=== PATIENT | male | born 1995 | race Caucasian/White ===

== ENCOUNTER → 2021-10-12 02:32 | Outpatient (CLI) | payer OTHER, SELFPAY ==
[2021-10-12 18:47] LABS: SARS-CoV-2 RNA PCR Negative
== END ==
PROVIDERS: PCP Nurse Practitioner Adult Health; Visit Provider Nurse Practitioner Adult Health
DX: R68.83 Chills (without fever) (principal); Z20.822 Contact with and (suspected) exposure to COVID-19
CPT/HCPCS: C9803; U0003; U0005

== ENCOUNTER 2023-08-14 15:45 | Emergency (ER) | payer OTHER, SELFPAY ==
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
[2023-08-14 16:40] VITALS: BP 114/69; PULSE 66; RESP 16; TEMP 36.7; O2SAT 100
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
[2023-08-14] MEDS: CYCLOBENZAPRINE HCL 10 MG TABLET PO (18:47)
[2023-08-14] MEDS: HYDROcodone/acetaminophen (*CRX) 5-325 MG TABLET 1 TAB PO (18:47)
[2023-08-14] MEDS: KETOROLAC 30 MG/ML VIAL (*BKC) IM (18:50)
== END 2023-08-14 19:02 | disposition home or self-care (01) ==
PROVIDERS: Emergency Provider Nurse Practitioner Family; PCP Family Medicine
DX: R51.9 Headache, unspecified (principal); M54.2 Cervicalgia; V43.52XA Car driver injured in collision with other type car in traffic accident, initial encounter; Y92.481 Parking lot as the place of occurrence of the external cause
CPT/HCPCS: 70450; 72125; 96372; 99284; A9270; J1885

== ENCOUNTER 2025-03-03 16:28 | Outpatient (CLI) | payer OTHER, SELFPAY ==
--- OUTSIDE RECORDS SUMMARY | 2025-03-03 17:08 | XMS_ITS | Data Portability ---
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 Annual labs: 04/17/23. D/w pt in detail about his findings, recent labs and further plan of care. All meds verified with pt. Meds as directed. Diet and exercise explained in detail. Advised pt to talk with close friend/family member on a regular basis. Educated about alarming symptoms to monitor at home and call us back Or get checked in ED. Pt verbalized understanding it. Pt has done PT in the past. Offered to refer to counsellor; but pt declined. Offered to refer to Ortho; but pt declined. HM: Flu - Pt declined. Tdap, Gardasil - At pharmacy/HD. F/u in 2-3 months. Annual labs in 04/18. [email or web address] Not available 02/06/2024 17:56:27 04/17/2024 04/17/2024 28 yo M with - WELL ADULT VISIT - ANEMIA - DYSTHYMIA - ANXIETY - RT SHOULDER PAIN, chronic - FATIGUE - EX-SMOKER X-ray Rt shoulder: 08/23/23. Annual labs: 04/17/23. D/w pt in detail about his findings, recent labs and further plan of care. Will do routine labs, cxr. Will refer pt to Ortho. All meds verified with pt. Meds as directed. Diet and exercise explained in detail. Advised pt to talk with close friend/family member on a regular basis. Educated about alarming symptoms to monitor at home and call us back Or get checked in ED. Pt verbalized understanding it. F/u with Ortho as per schedule. Pt has done PT in the past. Offered to refer to counsellor; but pt declined. HM: Flu - Pt declined. Tdap, Gardasil - At pharmacy/HD. F/u in 3 weeks. Annual labs in 04/19. Not available 04/17/2024 11:08:44 05/14/2024 05/14/2024 28 yo M with - ANEMIA, improved - DYSTHYMIA - ANXIETY - RT SHOULDER PAIN, chronic - FATIGUE - EX-SMOKER Annual labs: 04/17/24. X-ray Rt shoulder: 08/23/23. Annual labs: 04/17/23. D/w pt in detail about his findings, recent labs and further plan of care. All meds verified with pt. Meds as directed. Diet and exercise explained in detail. Advised pt to talk with close friend/family member on a regular basis. Educated about alarming symptoms to monitor at home and call us back Or get checked in ED. Pt verbalized understanding it. F/u with Ortho as per schedule. Pt has done PT in the past. Offered to refer to counsellor; but pt declined. HM: Flu - Pt declined. Tdap, Gardasil - At pharmacy/HD. F/u in 3-4 months. CBC in 11/18. Annual labs in 04/19. [email or web address] Not available 05/14/2024 15:56:47 12/04/2024 12/04/2024 29 yo M with - B/L SHOULDER PAIN, chronic - ANEMIA, improved - DYSTHYMIA - ANXIETY - FATIGUE - EX-SMOKER Annual labs: 04/17/24. X-ray Rt shoulder: 08/23/23. Annual labs: 04/17/23. D/w pt in detail about his findings, recent labs & imagines and further plan of care. Will do x-ray. All meds verified with pt. Meds as directed. Diet and exercise explained in detail. Advised pt to talk with close friend/family member on a regular basis. Educated about alarming symptoms to monitor at home and call us back Or get checked in ED. Pt verbalized understanding it. F/u with Ortho as per schedule. Pt has done PT in the past. Offered to refer to counsellor; but pt declined. HM: Flu - Pt declined. Tdap, Gardasil - At pharmacy/HD. F/u in 3 weeks. CBC before next visit. Annual labs in 04/19. [email or web address] Not available 12/04/2024 15:26:49 12/29/2024 12/29/2024 29 yo M with - B/L SHOULDER PAIN, chronic - ANEMIA, improved - DYSTHYMIA - ANXIETY - FATIGUE - EX-SMOKER Annual labs: 04/17/24. X-ray Rt shoulder: 08/23/23. Annual labs: 04/17/23. D/w pt in detail about his findings, recent labs & imagines and further plan of care. Will refer pt to Ortho again. All meds verified with pt. Meds as directed. Diet and exercise explained in detail. Advised pt to talk with close friend/family member on a regular basis. Educated about alarming symptoms to monitor at home and call us back Or get checked in ED. Pt verbalized understanding it. F/u with Ortho as per schedule. Pt has done PT in the past. Offered to refer to counsellor; but pt declined. HM: Flu - Pt declined. Tdap, Gardasil - At pharmacy/HD. F/u in 1-2 months. CBC, x-ray before next visit. Annual labs in 04/19. [email or web address] Not available 12/29/2024 17:08:16 Plan of Treatment Reminders Order Date Submit Date Provider Last Modified By Organization Details Last Modified Time Details Appointments Follow Up 15 2024 03:45P Fly Avila MD Not available Not available Not available Lab CBC w/ auto diff 2024 025 [facility] (Lab), [address] [place], [address], 12/25/2024 14:27:38 CBC w/ auto diff 2023 024 [email or web address] [facility] (Lab), [address] [place], [address], 11/04/2024 08:36:18 vitamin B12 + folate, serum or blood [address] (Lab), [address] [place], [address], 04/24/2024 08:00:28 iron + total iron-bind ing capacity (TIBC), serum [address] [facility] (Lab), [address] [place], [address], 04/17/2024 22:44:24 ferritin, serum or plasma [address] [facility] (Lab), [address] [place], [address], 04/17/2024 23:06:31 CMP, serum or plasma [address] [facility] (Lab), [address] [place], [address], 04/17/2024 22:44:35 CBC w/ auto diff [address] [facility] (Lab), [address] [place], [address], 04/17/2024 22:16:56 lipid panel, blood [address] (Lab), [address] [place], [address], 04/24/2024 08:00:28 TSH, serum, reflex free T4 [address] (Lab), [address] [place], [address], 04/24/2024 08:00:28 urinalysi s complete, reflex culture [address] (Lab), [address] [place], [address], 04/24/2024 08:00:28 magnesium , serum or plasma [address] [facility] (Lab), [address] [place], [address], 04/17/2024 22:44:40 vitamin D, 25-hydrox y, total, serum 2023 024 [email or web address] [facility] (Lab), [address] [place], [address], 04/24/2024 08:00:28 uric acid, serum or plasma [address] [facility] (Lab), [address] [place], [address], 04/17/2024 22:44:44 Referral orthopedi c surgeon referral - B/l shoulder pain, x-rays done. Please call patient to schedule an appointme nt. Thank you. 2024 025 [email or web address] [facility], [address], [place], [address], 01/26/2025 08:57:23 orthopedi c surgeon referral - Please call patient to schedule an appointme nt. Thank you. 2023 024 [email or web address] [facility], [address], [place], [address], 05/15/2024 09:19:30 Procedures None recorded. Surgeries None recorded. Imaging XR, shoulder, 2 or more view [address] ([facility]), [address] [place], [address], 12/11/2024 08:50:03 XR, chest, 2 view [address] ([facility]), [address] [facility] [place], [address], 05/02/2024 09:18:52 Medication Orders sertralin e 50 mg tablet 2024 025 [facility] #46828, [address], [place], [place], [id number], 12/29/2024 17:03:52 buspirone 10 mg tablet 2024 025 [facility] #32859, [address], [place], [place], [id number], 12/29/2024 17:03:43 ferrous sulfate 325 mg (65 mg iron) tablet 2024 025 [facility] #56160, [address], [place], [place], [id number], 12/29/2024 17:03:39 diclofena c sodium 75 mg tablet,de layed release 2024 025 [facility] #06187, [address], [place], [place], [id number], 12/29/2024 17:03:42 sertralin e 50 mg tablet 2024 025 [facility] #67028, [address], [place], [place], [id number], 12/04/2024 15:21:17 buspirone 10 mg tablet 2024 025 [facility] #90447, [address], [place], [place], [id number], 12/04/2024 15:21:17 ferrous sulfate 325 mg (65 mg iron) tablet 2024 025 [facility] #49477, [address], [place], [place], [id number], 12/04/2024 15:21:16 diclofena c sodium 75 mg tablet,de layed release [email or web address] [place] [address] [facility] #67695, [address], [place], [place], [id number], 12/04/2024 15:21:27 sertralin e 100 mg tablet [email or web address] [facility] #13152, [address], [place], [place], [id number], 12/29/2024 17:09:02 buspirone 10 mg tablet 2023 024 [facility] #36356, [address], [place], [id number], 05/14/2024 15:51:13 ferrous sulfate 325 mg (65 mg iron) tablet 2023 024 [email or web address] [facility] #80122, [address], [place], [place], [id number], 05/14/2024 15:51:25 diclofena c sodium 75 mg tablet,de layed release 2023 024 [facility] #61126, [address], [place], [place], [id number], 05/14/2024 15:50:54 buspirone 10 mg tablet 2023 024 [facility] #95247, [address], [place], [place], [id number], 04/17/2024 11:00:54 ferrous sulfate 325 mg (65 mg iron) tablet [address] [facility] #81826, [address], [place], [place], [id number], 04/17/2024 11:00:59 sertralin e 100 mg tablet [address] [facility] #23706, [address], [place], [place], [id number], 12/29/2024 17:09:02 diclofena c sodium 75 mg tablet,de layed release 2023 024 [facility] #55104, [address], [place], [place], [id number], 04/17/2024 11:00:53 sertralin e 100 mg tablet [address] [facility] #78303, [address], [place], [place], [id number], 12/29/2024 17:09:02 buspirone 10 mg tablet 2023 024 [facility] #73930, [address], [place], [place], [id number], 02/06/2024 17:51:00 ferrous sulfate 325 mg (65 mg iron) tablet 2023 024 [facility] #34609, [address], [place], [place], [id number], 02/06/2024 17:51:01 diclofena c sodium 75 mg tablet,de layed release [address] [facility] #34608, [address], [place], [place], [id number], 02/06/2024 17:54:29 Patient TargetsNo targets recorded. Patient Instructions Encounter Date Encounter Id Patient Instructions Last Modified By Organization Details Last Modified Time 05/14/2024 [id number] anemia: care instructions Not available 05/14/2024 15:50:48 12/04/2024 [id number] anemia: care instructions [email or web address] Not available 12/04/2024 15:21:11 12/29/2024 [id number] anemia: care instructions [email or web address] Not available 12/29/2024 17:03:35 Reason for Referral Orthopedic Surgeon Referral for Pain of right shoulder joint Please call patient to schedule an appointment. Thank you. Referring Physician: Russell Avila [facility], Encounter Date: 04/17/2024 Orthopedic Surgeon Referral for Pain of left shoulder joint B/l shoulder pain, x-rays done. Please call patient to schedule an appointment. Thank you. Referring Physician: Russell Avila [facility], Encounter Date: 12/29/2024 Results Created Date Observation Date Name Description Value Unit Range Abnormal Flag Note LastModifiedBy Organization Detail LastModifiedTime 04/17/20 24 04/17/2024 CBC/C OMPLE TE BLD COUNT W/DIF F white blood cells 7.0 x10'3 /uL 4.2-10 .8 Not Available [facility] (Lab) [address] [place], [address], 04/17/2024 22:16:56 04/17/20 24 04/17/2024 CBC/C OMPLE TE BLD COUNT W/DIF F red blood cells 4.12 x10'6 /uL 4.10-5 .80 Not Available [facility] (Lab) [address] [place], [address], 04/17/2024 22:16:56 04/17/20 24 04/17/2024 CBC/C OMPLE TE BLD COUNT W/DIF F hemoglobin 12.6 g/dL 13.2-1 7.0 low Not Available [facility] (Lab) [address] [place], [address], 04/17/2024 22:16:56 04/17/20 24 04/17/2024 CBC/C OMPLE TE BLD COUNT W/DIF F hematocrit 37.8 % 39.3-5 0.0 low Not Available [facility] (Lab) [address] [place], [address], 04/17/2024 22:16:56 04/17/20 24 04/17/2024 CBC/C OMPLE TE BLD COUNT W/DIF F mean red cell volume 91.7 fL 80.0-9 7.0 Not Available [facility] (Lab) [address] [place], [address], 04/17/2024 22:16:56 04/17/20 24 04/17/2024 CBC/C OMPLE TE BLD COUNT W/DIF F mean red cell hemoglobin 30.6 pg 27.0-3 3.0 Not Available [facility] (Lab) [address] [place], [address], 04/17/2024 22:16:56 04/17/20 24 04/17/2024 CBC/C OMPLE TE BLD COUNT W/DIF F mean RBC HGB concentratio n 33.3 g/dL 31.0-3 6.0 Not Available [facility] (Lab) [address] [place], [address], 04/17/2024 22:16:56 04/17/20 24 04/17/2024 CBC/C OMPLE TE BLD COUNT W/DIF F red cell distribution width 13.0 % 11.8-1 5.5 Not Available [facility] (Lab) [address] [place], [address], 04/17/2024 22:16:56 04/17/20 24 04/17/2024 CBC/C OMPLE TE BLD COUNT W/DIF F platelets 347 x10'3 /uL 150-40 0 Not Available [facility] (Lab) [address] [place], [address], 04/17/2024 22:16:56 04/17/20 24 04/17/2024 CBC/C OMPLE TE BLD COUNT W/DIF F mean platelet volume 12.2 fL 9.0-12 .4 Not Available [facility] (Lab) [address] [place], [address], 04/17/2024 22:16:56 04/17/20 24 04/17/2024 CBC/C OMPLE TE BLD COUNT W/DIF F neutrophils 60.3 % 39.0-7 2.0 Not Available [facility] (Lab) [address] [place], [address], 04/17/2024 22:16:56 04/17/20 24 04/17/2024 CBC/C OMPLE TE BLD COUNT W/DIF F lymphocytes 30.0 % 16.0-4 7.0 Not Available [facility] (Lab) [address] [place], [address], 04/17/2024 22:16:56 04/17/20 24 04/17/2024 CBC/C OMPLE TE BLD COUNT W/DIF F monocytes 6.8 % 5.0-12 .0 Not Available [facility] (Lab) [address] [place], [address], 04/17/2024 22:16:56 04/17/20 24 04/17/2024 CBC/C OMPLE TE BLD COUNT W/DIF F eosinophils 2.1 % 1.0-7. 0 Not Available [facility] (Lab) [address] [place], [address], 04/17/2024 22:16:56 04/17/20 24 04/17/2024 CBC/C OMPLE TE BLD COUNT W/DIF F basophils 0.4 % 0.0-2. 0 Not Available [facility] (Lab) [address] [place], [address], 04/17/2024 22:16:56 04/17/20 24 04/17/2024 CBC/C OMPLE TE BLD COUNT W/DIF F immature granulocytes 0.4 % 0.00-0 .50 Not Available [facility] (Lab) [address] [place], [address], 04/17/2024 22:16:56 04/17/20 24 04/17/2024 CBC/C OMPLE TE BLD COUNT W/DIF F neutrophils, absolute count 4.22 x10'3 /uL 1.5-8. 0 Not Available [facility] (Lab) [address] [place], [address], 04/17/2024 22:16:56 04/17/20 24 04/17/2024 CBC/C OMPLE TE BLD COUNT W/DIF F lymphocytes, absolute count 2.10 x10'3 /uL 1.07-3 .43 Not Available [facility] (Lab) [address] [place], [address], 04/17/2024 22:16:56 04/17/20 24 04/17/2024 CBC/C OMPLE TE BLD COUNT W/DIF F monocytes, absolute count 0.48 x10'3 /uL 0.29-0 .99 Not Available [facility] (Lab) [address] [place], [address], 04/17/2024 22:16:56 04/17/20 24 04/17/2024 CBC/C OMPLE TE BLD COUNT W/DIF F eosinophils, absolute count 0.15 x10'3 /uL 0.02-0 .53 Not Available [facility] (Lab) [address] [place], [address], 04/17/2024 22:16:56 04/17/20 24 04/17/2024 CBC/C OMPLE TE BLD COUNT W/DIF F basophils, absolute count 0.03 x10'3 /uL 0.01-0 .08 Not Available [facility] (Lab) [address] [place], [address], 04/17/2024 22:16:56 04/17/20 24 04/17/2024 CBC/C OMPLE TE BLD COUNT W/DIF F immature granulocytes ,absolute 0.03 x10'3 /uL 0.00-0 .05 Not Available [facility] (Lab) [address] [place], [address], 04/17/2024 22:16:56 04/17/20 24 04/17/2024 CBC/C OMPLE TE BLD COUNT W/DIF F nucleated red blood cells 0.0 % -0 Not Available [facility] (Lab) [address] [place], [address], 04/17/2024 22:16:56 04/17/20 24 04/17/2024 CBC/C OMPLE TE BLD COUNT W/DIF F NRBC# 0.00 x10'3 /uL Not Available [facility] (Lab) [address] [place], [address], 04/17/2024 22:16:56 04/17/20 24 04/17/2024 IRON/ TIBC PANEL total iron binding capacity 261 mcg/d L 265-47 5 low Not Available [facility] (Lab) [address] [place], [address], 04/17/2024 22:44:54 04/17/20 24 04/17/2024 IRON/ TIBC PANEL % transferrin saturation 42 % 20-55 Not Available [facility] (Lab) [address] [place], [address], 04/17/2024 22:44:54 04/17/20 24 04/17/2024 IRON/ TIBC PANEL unsaturated iron bind capacity 152 mcg/d L 126-38 2 Not Available [facility] (Lab) [address] [place], [address], 04/17/2024 22:44:54 04/17/20 24 04/17/2024 IRON/ TIBC PANEL iron 109 mcg/d L 42-175 Not Available [facility] (Lab) [address] [place], [address], 04/17/2024 22:44:54 04/17/20 24 04/17/2024 COMPR EHENS VALDEZ METAB OLIC PANEL sodium 138 mmol/ L 137-14 5 Not Available [facility] (Lab) [address] [place], [address], 04/17/2024 22:44:34 04/17/20 24 04/17/2024 COMPR EHENS VALDEZ METAB OLIC PANEL potassium 4.3 mmol/ L 3.5-5. 1 Not Available [facility] (Lab) [address] [place], [address], 04/17/2024 22:44:34 04/17/20 24 04/17/2024 COMPR EHENS VALDEZ METAB OLIC PANEL chloride 106 mmol/ L 98-107 Not Available [facility] (Lab) [address] [place], [address], 04/17/2024 22:44:34 04/17/20 24 04/17/2024 COMPR EHENS VALDEZ METAB OLIC PANEL carbon dioxide 23 mmol/ L 22-30 Not Available [facility] (Lab) [address] [place], [address], 04/17/2024 22:44:34 04/17/20 24 04/17/2024 COMPR EHENS VALDEZ METAB OLIC PANEL anion gap 13.3 mmol/ L 14-22 low Not Available [facility] (Lab) [address] [place], [address], 04/17/2024 22:44:34 04/17/20 24 04/17/2024 COMPR EHENS VALDEZ METAB OLIC PANEL glucose 139 mg/dL 70-99 high Not Available [facility] (Lab) [address] [place], [address], 04/17/2024 22:44:34 04/17/20 24 04/17/2024 COMPR EHENS VALDEZ METAB OLIC PANEL BUN 11 mg/dL 8-19 Not Available [facility] (Lab) [address] [place], [address], 04/17/2024 22:44:34 04/17/20 24 04/17/2024 COMPR EHENS VALDEZ METAB OLIC PANEL creatinine 0.79 mg/dL 0.66-1 .25 Not Available [facility] (Lab) [address] [place], [address], 04/17/2024 22:44:34 04/17/20 24 04/17/2024 COMPR EHENS VALDEZ METAB OLIC PANEL GFR >60 Refer ence Range : [place] GFR Healt hy Adult : >60 mL/mi n/1.7 3 m2 Chron ic Kidne y Disea se: 15-60 mL/mi n/1.7 3 m2 Kidne y Failu re: <15/m L/min /1.73 m2 www.n iddk. nih.g ov The MDRD study equat ion has not been valid ated in child agueda <18 years of age; pregn ant women ; the elder ly >85 years of age; or in some racia l or ethni c subgr oups, such as Hispa nics. Outsi de the valid ated erin eters , estim ated GFR is less accur ate, requi ring clini kory judgm ent on a case- by-ca se basis . Clini kory inter preta tion for other races and ages must be made by the clini lisa. The MDRD study equat ion has not been valid ated for the evalu ation of serum creat inine relat ed to nutri nicolas l statu s or medic ation usage . For perso ns <18 years of age, a pedia tric GFR calcu lator is avail able on the [facility] websi te: https ://lincoln johnsony.o rg/pr ofess ional s/kdo qi/gf r_cal culat or Not Available [facility] (Lab) [address] [place], [address], 04/17/2024 22:44:34 04/17/20 24 04/17/2024 COMPR EHENS VALDEZ METAB OLIC PANEL alkaline phosphatase 63 U/L 38-126 Not Available [facility] (Lab) [address] [place], [address], 04/17/2024 22:44:34 04/17/20 24 04/17/2024 COMPR EHENS VALDEZ METAB OLIC PANEL alanine aminotransfe rase 23 U/L 0-50 Not Available [facility] (Lab) [address] [place], [address], 04/17/2024 22:44:34 04/17/20 24 04/17/2024 COMPR EHENS VALDEZ METAB OLIC PANEL aspartate aminotransfe rase 30 U/L 15-46 Not Available [facility] (Lab) [address] [place], [address], 04/17/2024 22:44:34 04/17/20 24 04/17/2024 COMPR EHENS VALDEZ METAB OLIC PANEL bilirubin, total 0.40 mg/dL 0.20-1 .30 Not Available [facility] (Lab) [address] [place], [address], 04/17/2024 22:44:34 04/17/20 24 04/17/2024 COMPR EHENS VALDEZ METAB OLIC PANEL calcium 9.2 mg/dL 8.4-10 .2 Not Available [facility] (Lab) [address] [place], [address], 04/17/2024 22:44:34 04/17/20 24 04/17/2024 COMPR EHENS VALDEZ METAB OLIC PANEL total protein 7.4 g/dL 6.3-8. 2 Not Available [facility] (Lab) [address] [place], [address], 04/17/2024 22:44:34 04/17/20 24 04/17/2024 COMPR EHENS VALDEZ METAB OLIC PANEL albumin 4.8 g/dL 3.4-5. 0 Not Available [facility] (Lab) [address] [place], [address], 04/17/2024 22:44:34 04/17/20 24 04/17/2024 COMPR EHENS VALDEZ METAB OLIC PANEL globulin 2.6 g/dL 2.6-4. 2 Not Available [facility] (Lab) [address] [place], [address], 04/17/2024 22:44:34 04/17/20 24 04/17/2024 COMPR EHENS VALDEZ METAB OLIC PANEL A/G ratio 1.8 ratio 1.0-2. 0 Not Available [facility] (Lab) [address] [place], [address], 04/17/2024 22:44:34 04/17/20 24 04/17/2024 LIPID PANEL cholesterol 142 mg/dL 140-19 9 NIH PHUNOG NSUS RECOM MENDA TION FOR JHONY STERO L: ADULT CHILD LOW RISK: <200 <170 BORDE RLINE : <200- 239 ----- HIGH RISK: >240 >200 Not Available [facility] (Lab) [address] [place], [address], 04/17/2024 22:44:39 04/17/20 24 04/17/2024 LIPID PANEL triglyceride s 90 mg/dL 0-150 NIH PHUONG NSUS REPOR T RECOM MENDA TION FOR TRIGL YCERI TREVOR: ADULT CHILD LOW RISK: <150 ----- BODER LINE: 150-1 99 ----- HIGH RISK: >200 ----- Not Available [facility] (Lab) [address] [place], [address], 04/17/2024 22:44:39 04/17/20 24 04/17/2024 LIPID PANEL HDL cholesterol 42 mg/dL 40- Not Available [facility] (Lab) [address] [place], [address], 04/17/2024 22:44:39 04/17/20 24 04/17/2024 LIPID PANEL LDL cholesterol, calculated 82 mg/dL 0-130 NIH PHUONG NSUS REPOR T RECOM MENDA TIONS FOR LDL: ADULT CHILD LOW RISK <130 <110 (OPTI MAL LDL) <100 ----- BORDE RLINE : 130-1 59 ----- HIGH RISK: >160 >130 A TRIGL YCERI DE RESUL T >400 INVAL IDATE S THE CALCU LATIO N FOR LDL FRACT IONAT ION - THE LDL RESUL T WILL NOT BE REPOR NNEKA. Not Available [facility] (Lab) [address] [place], [address], 04/17/2024 22:44:39 04/17/20 24 04/17/2024 MAGNE SIUM magnesium 1.8 mg/dL 1.6-2. 3 Not Available [facility] (Lab) [address] [place], [address], 04/17/2024 22:44:40 04/17/20 24 04/17/2024 URIC ACID SERUM uric acid 4.7 mg/dL 3.5-8. 5 Not Available [facility] (Lab) [address] [place], [address], 04/17/2024 22:44:44 04/17/20 24 04/17/2024 VITAM IN D 25-HY DROXY vd25oh 38.6 NG/mL 30-100 Vitam in D Statu s: Defic ient: <20 ng/mL Insuf ficie nt: 20-29 ng/mL Suffi cient : 30-10 0 ng/mL Not Available [facility] (Lab) [address] [place], [address], 04/17/2024 22:59:10 04/17/20 24 04/17/2024 TSH W/REF AZALIA FT4 TSH with reflex free T4 0.992 uIU/m L 0.465- 4.680 Not Available [facility] (Lab) [address] [place], [address], 04/17/2024 23:01:58 04/17/20 24 04/17/2024 JUNIOR TIN ferritin 131 NG/mL 17.9-4 64 Not Available [facility] (Lab) [address] [place], [address], 04/17/2024 23:06:31 04/17/20 24 04/17/2024 VITAM IN B12 (FRANCISCA NATALIA ) vb12 453 pg/mL 239-93 1 Not Available [facility] (Lab) [address] [place], [address], 04/17/2024 23:42:58 04/17/20 24 04/17/2024 FOLAT E, SERUM /PLAS MA folate 3.99 NG/mL 2.76-2 0.0 Not Available [facility] (Lab) [address] [place], [address], 04/17/2024 23:42:59 Result Notes None recorded. Problems Name Problem SNOMED Code Status Onset Date Resolution Date Notes Provider Name and Address Organization Details Recorded Time Anxiety disorder 521240707 Active 2022 Russell Avila MD [address] [facility], [place] [address], [place], [address], [facility] 3 11:26:54 Dysthymia 82292561 Active 2022 Russell Avila MD [address] [facility], [address], [place], [address], [facility] 3 11:27:16 Ex-smoker 6548752 Active 2022 Russell Avila MD [address], [address], [place], [address], [place] [facility] 3 11:27:27 Lack of energy 403597344 Active 2022 Russell Avila MD [address], [address], [place], [address], [place] [facility] 3 11:27:37 Fatigue 65389953 Active 2022 Russell Avila MD [address], [address], [place], [address], [place] [facility] 3 11:38:50 Anemia 605422192 Active 2022 Russell Avila MD [address], [address], [place], [address], [place] [facility] 3 12:10:07 Pain of right shoulder joint 3004782407347 9100 Active 2022 Russell Avila MD [address], [address], [place], [address], [place] [facility] 3 12:13:17 Thoracic back pain 707231774 Active 2022 Russell Avila MD [address], [address], [place], [address], [place] [facility] 3 14:54:54 Scapulalgia 15702015 Active 2022 Russell Avila MD [address], [address], [place], [address], [place] [facility] 3 14:55:14 Muscle strain 25050570 Active 2022 Russell Avila MD [address], [address], [place], [address], [place] [facility] 3 15:01:04 Pain of left shoulder joint 5323971527542 9109 Active 2024 Russell Avila MD [address] [facility], [address], [place], [address], [facility] 5 15:20:08 Problem Notes None recorded. Procedures Surgical History Date Name Laterality Status Provider Name and Address Organization Details Recorded Time 08/22/2023 Transition al_Aspen_Rolly conklinement completed Landon Mukherjee [facility] 08/22/2023 14:49:25 Imaging Results None recorded. Procedure Notes None recorded. Medical Equipment None Reported. Allergies Allergen ID Allergen Name Allergen Category Reaction Reaction Severity Criticality Documentation Date Start Date Code Code System Note Provider Name and Address Organization Details Recorded Time 77995 cashew nut allergeni c extract food swelling moderate high 07/24/2023 21796 6 RxNorm ROLLY Gonzalez, [facility] 3 12:09:44 No known drug allergies Medications Name Sig Start Date Stop Date Status Note LastModified by Organization Details LastModified Time cyclobenzap rine 10 mg tablet TAKE 1 TABLET BY MOUTH EVERY 12 HOURS NEEDED 12/29 completed Not Available Not

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
--- OUTSIDE RECORDS SUMMARY | 2025-03-03 17:08 | XMS_ITS | Encounter Summary ---
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 [employer] Name Role Phone Unavailable Primary Care Provider Unavailabl e Prior Encounters Date Type Department Care Team Description 02/17/2025 1:15 PM CDT Office Visit [facility] [address] [place] [phone] Daniela Garcia DMD 02/17/2025 1:00 PM CDT Office Visit [facility] [address] [place] [phone] Patricia Clements [facility] 02/02/2025 Travel 02/02/2025 2:30 PM CDT Office Visit [facility] [address] [place] [phone] Daniela Garcia DMD 01/22/2025 2:15 PM SYSTEMS MECHANIC Office Visit [facility] [address] [place] [phone] Serenity Liu, [facility] 01/15/2025 Travel 01/15/2025 1:30 PM SYSTEMS MECHANIC Office Visit [facility] [address] [place] [phone] Daniela Garcia DMD Encounter for dental examination and cleaning without abnormal findings (Primary Dx) Last Filed Vital Signs Vital Sign Reading Time Taken Comments Blood Pressure 109/62 02/17/2025 1:49 PM CDT Pulse 63 02/17/2025 1:49 PM CDT Temperature - - Respiratory Rate - - Oxygen Saturation - - Inhaled Oxygen Concentration - - Weight - - Height - - Body Mass Index - - Plan of Treatment Upcoming Encounters Date Type Department Care Team (Late st Contact Info) Description 04/28/2025 3:00 PM CDT Office Visit [facility] [address] [place] [phone] [facility] [address] [place] [address] 08/05/2025 2:45 PM CDT Office Visit [facility] [address] [place] [phone] Daniela Garcia, DMD [address] [place], [place] [phone] 08/05/2025 3:00 PM CDT Office Visit [address] [phone] [facility] [address] [place] [address] Procedures Procedure Name Priority Date/Time Associated Diagnosis Comments 22 F(V) RESIN-BASED COMPOSITE - ONE SURFACE, ANTERIOR Routine 02/17/2025 1:15 PM CDT ORAL SURG CONSULT Routine 02/17/2025 1:0 0 PM CDT 29 DO RESIN-BASED COMPOSITE - TWO SURFACES, POSTERIOR Routine 02/02/2025 2:30 PM CDT 27 F(V) RESIN-BASED COMPOSITE - ONE SURFACE, ANTERIOR Routine 02/02/2025 2:30 PM CDT 11 F(V) RESIN-BASED COMPOSITE - ONE SURFACE, ANTERIOR Routine 02/02/2025 2:30 PM CDT ORAL HYGIENE INSTRUCTIONS Routine 2024 2:15 PM SYSTEMS MECHANIC LR PERIODONTAL SCALING AND ROOT PLANING - FOUR OR MORE TEETH PER QUADRANT Routine 01/22/2025 2:15 PM SYSTEMS MECHANIC LL PERIODONTAL SCALING AND ROOT PLANING - FOUR OR MORE TEETH PER QUADRANT Routine 01/22/2025 2:15 PM SYSTEMS MECHANIC UL PERIODONTAL SCALING AND ROOT PLANING - FOUR OR MORE TEETH PER QUADRANT Routine 01/22/2025 2:15 PM SYSTEMS MECHANIC UR PERIODONTAL SCALING AND ROOT PLANING - FOUR OR MORE TEETH PER QUADRANT Routine 01/22/2025 2:15 PM SYSTEMS MECHANIC INTRAORAL PHOTO Routine 01/15/2025 1:30 PM SYSTEMS MECHANIC INTRAORAL PHOTO Routine 01/15/2025 1:30 PM SYSTEMS MECHANIC INTRAORAL PHOTO Routine 01/15/2025 1:30 PM SYSTEMS MECHANIC INTRAORAL PHOTO Routine 01/15/2025 1:30 PM SYSTEMS MECHANIC ADDITIONAL X-RAY Routine 01/15/2025 1:30 PM SYSTEMS MECHANIC ADDITIONAL X-RAY Routine 01/15/2025 1:30 PM SYSTEMS MECHANIC ADDITIONAL X-RAY Routine 01/15/2025 1:30 PM SYSTEMS MECHANIC ADDITIONAL X-RAY Routine 01/15/2025 1:30 PM SYSTEMS MECHANIC ADDITIONAL X-RAY Routine 01/15/2025 1:30 PM SYSTEMS MECHANIC SINGLE X-RAY Routine 01/15/2025 1:30 PM SYSTEMS MECHANIC COMPREHENSIVE ORAL EVALUATION - NEW OR ESTABLISHED PATIENT Routine 01/15/2025 1:30 PM SYSTEMS MECHANIC Encounter for dental examination and cleaning without abnormal findings [facility] CT CAPTURE AND INTERPRETATION WITH FIELD OF VIEW OF BOTH JAWS; WITH OR WITHOUT CRANIUM Routine 01/15/2025 1:30 PM SYSTEMS MECHANIC BITEWINGS - FOUR RADIOGRAPHIC IMAGES Routine 01/15/2025 1:30 PM SYSTEMS MECHANIC Visit Diagnoses Diagnosis Start Date Encounter for dental examination and cleaning without abnormal findings 01/15/2025 Insurance [facility]
--- OUTSIDE RECORDS SUMMARY | 2025-03-03 17:08 | XMS_ITS | Clinical Summary ---
Author Organization [facility] Address [address] [place] [address] Care Team Providers Care Associate Software Application Engineer Name Role Phone Unavailable Primary Care Provider Unavailabl e Medications No known medications Active Problems No known active problems Encounters Date Type Department Care Team Description 02/17/2025 1:15 PM CDT Office Visit [facility] [address] [place] [phone] Daniela Garcia DMD 02/17/2025 1:00 PM CDT Office Visit [facility] [address] [place] [phone] Patricia Clements DDS 02/02/2025 2:30 PM CDT Office Visit [facility] [address] [place] [phone] Daniela Garcia DMD 02/02/2025 Travel 01/22/2025 2:15 PM AIRCRAFT DE ICER INSTALLER Office Visit [facility] [address] [place] [phone] Serenity Liu, [facility] 01/15/2025 1:30 PM AIRCRAFT DE ICER INSTALLER Office Visit [facility] [address] [place] [phone] Daniela Garcia DMD Encounter for dental examination and cleaning without abnormal findings (Primary Dx) 01/15/2025 Travel from Last 3 Months Social History Tobacco Use Types Packs/Day Years Used Date Smoking Tobacco: Never Assessed Sex and Gender Information Value Date Recorded Sex Assigned at Not on file Legal Sex Male 11:36 AM PST Gender Identity Not on file Sexual Orientation Not on file COVID-19 Exposure Response Date Recorded In the last 10 days, have yo u been in contact with someone who was confirmed or suspected to have Coronavirus/COVID-19? No / Unsure 02/02/2025 2:29 PM CDT Last Filed Vital Signs Vital Sign Reading [...] Description 04/28/2025 3:00 PM CDT Office Visit [facility] [address] [place] [phone] [facility] [phone] [place] [phone] 08/05/2025 2:45 PM CDT Office Visit [facility] [address] [place] [phone] Daniela Garcia, DMD [address] [place], [place] [phone] 08/05/2025 3:00 PM CDT Office Visit [facility] [address] [place] [phone] [facility] [address] [place] [address] Health Maintenance Due Date Last Done Comments Periodontal Maintenance 1993 Dental Oral Exam 07/16/2025 01/15/2025 Dental X-Ray: Bitewings 07/16/2025 01/15/2025 Scaling and Root Planing 02/05/2027 025, 01/22/2025, 01/22/2025, Additional history exists Dental CBCT 01/15/2028 01/15/2025 Dental X-Ray: Full Mouth 01/17/2028 01/16/2025, 12/28 Dental X-Ray: Panoramic 01/17/2028 01/16/2025 Meningococcal B Vaccine Aged Out No l onger eligible based on patient's age to complete this topic Procedures Procedure Name Priority Date/Time Associated Diagnosis [...] ORAL HYGIENE INSTRUCTIONS Routine 2024 2:15 PM AIRCRAFT DE ICER INSTALLER LR PERIODONTAL SCALING AND ROOT PLANING - FOUR OR MORE TEETH PER QUADRANT Routine 01/22/2025 2:15 PM AIRCRAFT DE ICER INSTALLER LL PERIODONTAL SCALING AND ROOT PLANING - FOUR OR MORE TEETH PER QUADRANT Routine 01/22/2025 2:15 PM AIRCRAFT DE ICER INSTALLER UL PERIODONTAL SCALING AND ROOT PLANING - FOUR OR MORE TEETH PER QUADRANT Routine 01/22/2025 2:15 PM AIRCRAFT DE ICER INSTALLER UR PERIODONTAL SCALING AND ROOT PLANING - FOUR OR MORE TEETH PER QUADRANT Routine 01/22/2025 2:15 PM AIRCRAFT DE ICER INSTALLER INTRAORAL PHOTO Routine 01/15/2025 1:30 PM AIRCRAFT DE ICER INSTALLER INTRAORAL PHOTO Routine 01/15/2025 1:30 PM AIRCRAFT DE ICER INSTALLER INTRAORAL PHOTO Routine 01/15/2025 1:30 PM AIRCRAFT DE ICER INSTALLER INTRAORAL PHOTO Routine 01/15/2025 1:30 PM AIRCRAFT DE ICER INSTALLER ADDITIONAL X-RAY Routine 01/15/2025 1:30 PM AIRCRAFT DE ICER INSTALLER ADDITIONAL X-RAY Routine 01/15/2025 1:30 PM AIRCRAFT DE ICER INSTALLER ADDITIONAL X-RAY Routine 01/15/2025 1:30 PM AIRCRAFT DE ICER INSTALLER ADDITIONAL X-RAY Routine 01/15/2025 1:30 PM AIRCRAFT DE ICER INSTALLER ADDITIONAL X-RAY Routine 01/15/2025 1:30 PM AIRCRAFT DE ICER INSTALLER SINGLE X-RAY Routine 01/15/2025 1:30 PM AIRCRAFT DE ICER INSTALLER COMPREHENSIVE ORAL EVALUATION - NEW OR ESTABLISHED PATIENT Routine 01/15/2025 1:30 PM AIRCRAFT DE ICER INSTALLER Encounter for dental examination and cleaning without abnormal findings [facility] CT CAPTURE AND INTERPRETATION WITH FIELD OF VIEW OF BOTH JAWS; WITH OR WITHOUT CRANIUM Routine 01/15/2025 1:30 PM AIRCRAFT DE ICER INSTALLER BITEWINGS - FOUR RADIOGRAPHIC IMAGES Routine 01/15/2025 1:30 PM AIRCRAFT DE ICER INSTALLER from Last 3 Months [facility]
[2025-03-03 17:27] LABS: Basophils Absolute Auto 0.1 K/mm3 (0.0-0.1); Basophils Percent Auto 0.6 % (0.2-1.2); Eosinophils Absolute Auto 0.2 K/mm3 (0-0.3); Eosinophils Percent Auto 1.8 % (0-4.4); Hematocrit 36.7 % (42.0-52.0); Hemoglobin 11.9 g/dL (14.0-18.0); Immature Granulocyte Absolute 0.03 K/mm3 (0.00-0.031); Immature Granulocyte Percent A 0.3 % (0-0.5); Lymphocytes Absolute Auto 4.41 K/mm3 (0.9-3.2); Lymphocytes Percent Auto 36.9 % (18.3-44.2); Mean Corpuscular HGB Conc 32.4 g/dl (32-36); Mean Corpuscular Hemoglobin 29.8 pg (26-34); Mean Platelet Volume 10.6 fl (7.4-10.4); Monocytes Absolute Auto 1.1 K/mm3 (0.1-0.6); Monocytes Percent Auto 8.9 % (2.6-8.5); Neutrophils Absolute Auto 6.2 K/mm3 (1.3-6.7); Neutrophils Percent Auto 51.5 % (45.5-73.1); Platelet Count Result 328 k/mm3 (150-375); Red Blood Count 3.99 M/mm3 (4.6-6.20); Red Cell Distribution Width 12.3 % (11.5-14.5); White Blood Count 11.9 K/mm3 (4.5-10.0)
== END 2025-03-03 16:29 | disposition home or self-care (01) ==
LOC: ANHLAB 16:31
PROVIDERS: PCP Family Medicine; Visit Provider Family Medicine
DX: D64.9 Anemia, unspecified (principal)
CPT/HCPCS: 36415; 85025

== ENCOUNTER 2025-11-11 08:53 | Outpatient (CLI) | payer OTHER, SELFPAY ==
--- NOTE | ~2025-11-11 | MR_ITS ---
EXAM/PROCEDURE: MR shoulder LT w con HISTORY: pain of left shoulder pain COMPARISON: None available. TECHNIQUE: Left shoulder MR arthrography performed FINDINGS: No fracture subluxation or dislocation present. Mild scattered cartilaginous thinning at the glenohumeral joint suggests mild early osteoarthritis. The anterosuperior labrum appears disconnected slightly on image 13 series 2 with possible small area of a avulsion on same image. On lower images this is contiguous with the middle glenohumeral ligament and Millis complex is not excluded. The remainder the labrum appears intact. No ligamentous injury seen. The long head of the biceps tendon is intact within the bicipital groove and superior labral attachment appears intact. Mild contour irregularity in the distal supraspinatus tendon along the bursal margin, and trace amount of longitudinal fluid intense signal in tendon consistent with partial-thickness tears. Partial-thickness tear or tendinopathy of the subscapularis tendon may also be present but no retracted full-thickness tear seen. The spinoglenoid recess and suprascapular notch regions appear normal. IMPRESSION: 1. Irregular appearance of the anterior superior labrum. Questionable Millis complex. A small ALPSA (Anterior Labroligamentous Periosteal Sleeve Avulsion) lesion is not excluded. 2. Small partial-thickness tears likely present involving the supraspinatus and subscapularis tendons. 3. Early/mild osteoarthritic degenerative changes. Reviewed, dictated and finalized at location A. UNT SUPPORT SPECIALIST IMPRESSION: 1. Irregular appearance of the anterior superior labrum. Questionable Millis co mplex. A small ALPSA (Anterior Labroligamentous Periosteal Sleeve Avulsion) les ion is not excluded. 2. Small partial-thickness tears likely present involving the supraspinatus and subscapularis tendons. 3. Early/mild osteoarthritic degenerative changes.
--- NOTE | ~2025-11-11 | XR_ITS ---
EXAM/PROCEDURE: XR skull <4V HISTORY: MR clearance COMPARISON: None available. TECHNIQUE: Skull series FINDINGS: No radiopaque foreign body seen to preclude MRI. IMPRESSION: Patient cleared for MRI. Reviewed, dictated and finalized at location A. SERVICE SPECIALIST IMPRESSION: Patient cleared for MRI.
--- NOTE | ~2025-11-11 | XR_ITS ---
EXAM/PROCEDURE: XR fl inj shoulder LT - MR/CT HISTORY: Pain in left shoulder COMPARISON: None available. TECHNIQUE: Fluoroscopic guided injection for MR arthrography of the left shoulder. PROCEDURE: Fluoroscopy time: 0.3 minutes DAP: 0.114 will per square centimeter Number of images: 3 Contrast: 1 cc Omnipaque 240 Following informed consent and timeout, the left shoulder was prepped and draped in sterile fashion. Lidocaine was used for local anesthesia and a 22-gauge 3.5 spinal needle was advanced into the shoulder joint confirmed with contrast. Approximately 14 mL injected of combination 20 cc syringe which included 0.1 mm gadolinium/MultiHance, 5 mL 1% lidocaine without epinephrine, and 15 mL of sterile saline injected without incident. IMPRESSION: Patient status post left shoulder injection for MR arthrography with no immediate complication. Reviewed, dictated and finalized at location A. KBROKING DEALER IMPRESSION: Patient status post left shoulder injection for MR arthrography with no immedia te complication.
--- OUTSIDE RECORDS SUMMARY | 2025-11-11 09:29 | XMS_ITS | Encounter Summary ---
Author Organization [facility] Address [address] [place] [address] Care Team Providers Care Prescription Clerk Lenses Name Role Phone Unavailable Primary Care Provider Unavailabl e Prior Encounters Date Type Department Care Team Description 10/01/2025 3:00 PM INFORMATION SYSTEMS DIRECTOR [facility] [address] [phone] Ramses Avila DMD Dental caries, unspecified (Primary Dx) 10/01/2025 2:00 PM INFORMATION SYSTEMS DIRECTOR Office Visit [facility] [address] [phone] Jagruti Avila DMD Dental caries, unspecified (Primary Dx) 08/12/2025 8:15 AM CDT Office Visit [facility] [address] [phone] Ramses Avila DMD 02/17/2025 1:15 PM CDT Office Visit [facility] [address] [place] [phone] Daniela Garcia DMD 02/17/2025 1:00 PM CDT Office Visit [facility] [address] [place] [phone] Patricia Clements DDS 02/02/2025 Travel 02/02/2025 2:30 PM CDT Office Visit [facility] [address] [place] [phone] Daniela Garcia, JIM 01/22/2025 2:15 PM INFORMATION SYSTEMS DIRECTOR Office Visit [facility] [address] [place] [phone] Serenity Liu [facility] 01/15/2025 Travel 01/15/2025 1:30 PM INFORMATION SYSTEMS DIRECTOR Office Visit [facility] [address] [place] [phone] Daniela Garcia, JIM Encounter for dental examination and cleaning without abnormal findings (Primary Dx) Last Filed Vital Signs Vital Sign Reading Time Taken Comments Blood Pressure 105/65 10/01/2025 3:03 PM INFORMATION SYSTEMS DIRECTOR Pulse 70 10/01/2025 3:03 PM INFORMATION SYSTEMS DIRECTOR Temperature - - Respiratory Rate - - Oxygen Saturation - - Inhaled Oxygen Concentration - - Weight - - Height - - Body Mass Index - - Plan of Treatment Not on file Procedures Procedure Name Priority Date/Time Associated Diagnosis Comments 31 EXTRACTION, ERUPTED TOOTH OR EXPOSED ROOT (ELEVATION AND/OR FORCEPS REMOVAL) Routine 10/01/2025 3:00 PM INFORMATION SYSTEMS DIRECTOR Dental caries, unspecified 31 PLACEMENT OF INTRA-SOCKET BIOLOGICAL DRESSING TO AID IN HEMOSTASIS OR CLOT STABILIZATION, PER SITE Routine 10/01/2025 3:00 PM INFORMATION SYSTEMS DIRECTOR LIMITED ORAL EVALUATION - PROBLEM FOCUSED Routine 10/01/2025 2:00 PM INFORMATION SYSTEMS DIRECTOR 18 PLACEMENT OF INTRA-SOCKET BIOLOGICAL DRESSING TO AID IN HEMOSTASIS OR CLOT STABILIZATION, PER SITE Routine 08/12/2025 8:15 AM CDT 18 EXTRACTION, ERUPTED TOOTH REQUIRING REMOVAL OF BONE AND/OR SECTIONING OF TOOTH Routine 08/12/2025 8:15 AM CDT 19 PLACEMENT OF INTRA-SOCKET BIOLOGICAL DRESSING TO AID IN HEMOSTASIS OR CLOT STABILIZATION, PER SITE Routine 08/12/2025 8:15 AM CDT 19 EXTRACTION, ERUPTED TOOTH REQUIRING REMOVAL OF BONE AND/OR SECTIONING OF TOOTH Routine 08/12/2025 8:15 AM CDT SINGLE X-RAY Routine 08/12/2025 8:15 AM CDT LIMITED ORAL EVALUATION - PROBLEM FOCUSED Routine 08/12/2025 8:15 AM CDT BITEWING - SINGLE RADIOGRAPHIC IMAGE Routine 08/12/2025 8:15 AM CDT PANORAMIC RADIOGRAPHIC IMAGE Routine 08/12/2025 8:15 AM CDT 22 F(V) RESIN-BASED COMPOSITE - ONE SURFACE, ANTERIOR Routine 02/17/2025 1:15 PM CDT OS CONSULT Routine 02/17/2025 1:00 PM CDT 29 DO RESIN-BASED COMPOSITE - TWO SURFACES, POSTERIOR Routine 02/02/2025 2:30 PM CDT 27 F(V) RESIN-BASED COMPOSITE - ONE SURFACE, ANTERIOR Routine 02/02/2025 2:30 PM CDT 11 F(V) RESIN-BASED COMPOSITE - ONE SURFACE, ANTERIOR Routine 02/02/2025 2:30 PM CDT ORAL HYGIENE INSTRUCTIONS Routine 2024 2:15 PM INFORMATION SYSTEMS DIRECTOR LR PERIODONTAL SCALING AND ROOT PLANING - FOUR OR MORE TEETH PER QUADRANT Routine 01/22/2025 2:15 PM INFORMATION SYSTEMS DIRECTOR LL PERIODONTAL SCALING AND ROOT PLANING - FOUR OR MORE TEETH PER QUADRANT Routine 01/22/2025 2:15 PM INFORMATION SYSTEMS DIRECTOR UL PERIODONTAL SCALING AND ROOT PLANING - FOUR OR MORE TEETH PER QUADRANT Routine 01/22/2025 2:15 PM INFORMATION SYSTEMS DIRECTOR UR PERIODONTAL SCALING AND ROOT PLANING - FOUR OR MORE TEETH PER QUADRANT Routine 01/22/2025 2:15 PM INFORMATION SYSTEMS DIRECTOR INTRAORAL PHOTO Routine 01/15/2025 1:30 PM INFORMATION SYSTEMS DIRECTOR INTRAORAL PHOTO Routine 01/15/2025 1:30 PM INFORMATION SYSTEMS DIRECTOR INTRAORAL PHOTO Routine 01/15/2025 1:30 PM INFORMATION SYSTEMS DIRECTOR INTRAORAL PHOTO Routine 01/15/2025 1:30 PM INFORMATION SYSTEMS DIRECTOR ADDITIONAL X-RAY Routine 01/15/2025 1:30 PM INFORMATION SYSTEMS DIRECTOR ADDITIONAL X-RAY Routine 01/15/2025 1:30 PM INFORMATION SYSTEMS DIRECTOR ADDITIONAL X-RAY Routine 01/15/2025 1:30 PM INFORMATION SYSTEMS DIRECTOR ADDITIONAL X-RAY Routine 01/15/2025 1:30 PM INFORMATION SYSTEMS DIRECTOR ADDITIONAL X-RAY Routine 01/15/2025 1:30 PM INFORMATION SYSTEMS DIRECTOR SINGLE X-RAY Routine 01/15/2025 1:30 PM INFORMATION SYSTEMS DIRECTOR COMPREHENSIVE ORAL EVALUATION - NEW OR ESTABLISHED PATIENT Routine 01/15/2025 1:30 PM INFORMATION SYSTEMS DIRECTOR Encounter for dental examination and cleaning without abnormal findings [facility] CT CAPTURE AND INTERPRETATION WITH FIELD OF VIEW OF BOTH JAWS; WITH OR WITHOUT CRANIUM Routine 01/15/2025 1:30 PM INFORMATION SYSTEMS DIRECTOR BITEWINGS - FOUR RADIOGRAPHIC IMAGES Routine 01/15/2025 1:30 PM INFORMATION SYSTEMS DIRECTOR Visit Diagnoses Diagnosis Start Date Encounter for dental examination and cleaning without abnormal findings 01/15/2025 Dental caries, unspecified 10/01/2025 Dental caries, unspecified 10/01/2025 Insurance [facility]
--- OUTSIDE RECORDS SUMMARY | 2025-11-11 09:30 | XMS_ITS | Clinical Summary ---
Author Organization [facility] Address [address] [place] [address] Care Team Providers Care Bone Drier Name Role Phone Unavailable Primary Care Provider Unavailabl e Allergies No known active allergies Medications No known medications Active Problems No known active problems Encounters Date Type Department Care Team Description 10/01/2025 3:00 PM LENS MOLD SETTER Office Visit [facility]ists [address] [phone] Ramses Avila DMD Dental caries, unspecified (Primary Dx) 10/01/2025 2:00 PM LENS MOLD SETTER Office Visit [facility] [address] [phone] Jagruti Avila DMD Dental caries, unspecified (Primary Dx) 08/12/2025 8:15 AM CDT Office Visit [facility] [address] [phone] Ramses Avila DMD from Last 3 Months Social History Tobacco Use Types Packs/Day Years Used Date Smoking Tobacco: Never Assessed Sex and Gender Information Value Date Recorded Sex Assigned at Not on file Legal Sex Male 11:36 AM PST Gender Identity Not on file Sexual Orientation Not on file Last Filed Vital Signs Vital Sign Reading Time Taken Comments Blood Pressure 105/65 10/01/2025 3:03 PM LENS MOLD SETTER Pulse 70 10/01/2025 3:03 PM LENS MOLD SETTER Temperature - - Respiratory Rate - - Oxygen Saturation - - Inhaled Oxygen Concentration - - Weight - - Height - - Body Mass Index - - Plan of Treatment Health Maintenance Due Date Last Done Comments Periodontal Maintenance 1993 Dental Oral Exam 07/16/2025 01/15/2025 Dental X-Ray: Bitewings 07/16/2025 01/15/2025 Scaling and Root Planing 02/05/2027 025, 01/22/2025, 01/22/2025, Additional history exists Dental CBCT 01/15/2028 01/15/2025 Dental X-Ray: Full Mouth 01/17/2028 01/16/2025, 12/28 Dental X-Ray: Panoramic 08/13/2028 08/12/2025 Procedures Procedure Name Priority Date/Time Associated Diagnosis Comments 31 EXTRACTION, ERUPTED TOOTH OR EXPOSED ROOT (ELEVATION AND/OR FORCEPS REMOVAL) Routine 10/01/2025 3:00 PM LENS MOLD SETTER Dental caries, unspecified 31 PLACEMENT OF INTRA-SOCKET BIOLOGICAL DRESSING TO AID IN HEMOSTASIS OR CLOT STABILIZATION, PER SITE Routine 10/01/2025 3:00 PM LENS MOLD SETTER LIMITED ORAL EVALUATION - PROBLEM FOCUSED Routine 10/01/2025 2:00 PM LENS MOLD SETTER 18 PLACEMENT OF INTRA-SOCKET BIOLOGICAL DRESSING TO [...] RADIOGRAPHIC IMAGE Routine 08/12/2025 8:15 AM CDT UR PERIODONTAL SCALING AND ROOT PLANING - FOUR OR MORE TEETH PER QUADRANT Routine 01/22/2025 2:15 PM LENS MOLD SETTER [facility] CT CAPTURE AND INTERPRETATION WITH FIELD OF VIEW OF BOTH JAWS; WITH OR WITHOUT CRANIUM Routine 01/15/2025 1:30 PM LENS MOLD SETTER COMPREHENSIVE ORAL EVALUATION - NEW OR ESTABLISHED PATIENT Routine 01/15/2025 1:30 PM LENS MOLD SETTER Encounter for dental examination and cleaning without abnormal findings from Last 3 Months or Most Recently Relevant to Health Maintenance Insurance [employer] H[employer] Member Subscriber Plan / Payer ( fective 2024-Present) Name:Britton Medina Relation to Subscriber:Self Name:Britton Medina Payer ID:[id number] Type:Not on file Address: [address] [address] [place]
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
== END 2025-11-11 08:54 | disposition home or self-care (01) ==
PROVIDERS: PCP Family Medicine
DX: M25.512 Pain in left shoulder (principal)
CPT/HCPCS: 23350; 70250; 73222; A9577; Q9966